=== PATIENT | male | born 1970 | race African-American/Black ===

== ENCOUNTER 2020-10-15 08:31 | Emergency (ER) | payer OTHER ==
[~2020-10-15] VITALS: Ht 180.3 cm; Wt 79.0 kg
[2020-10-15] MEDS ORDERED: FLUORESCEIN SODIUM 1MG/STRIP RIGHTEYE ONE (08:45)
[2020-10-15] MEDS ORDERED: TETRACAINE 0.5% OPHTH DROPS 4ML BOTHEYE ONE (08:45)
[2020-10-15 08:52] VITALS: BP 125/89
[2020-10-15] MEDS ORDERED: SULF15DR26 RIGHTEYE (08:59)
== END 2020-10-15 09:20 | disposition home or self-care (01) ==
LOC: ER 08:31
DX: H10.9 Unspecified conjunctivitis (principal)
CPT/HCPCS: 99283

== ENCOUNTER 2021-05-30 17:53 | Emergency (ER) | payer OTHER ==
[~2021-05-30] VITALS: Ht 180.3 cm; Wt 84.0 kg
[~2021-05-30 17:53] MED LIST: SULF15DR26 RIGHTEYE
[2021-05-30 18:43] LABS: BASOPHILS % 0.9 % (0.0-2.0); EOSINOPHILS % 1.4 % (0.0-5.0); HEMATOCRIT. 38.4 % (42.0-52.0); HEMOGLOBIN. 12.6 g/dL (14.0-18.0); LYMPHOCYTES % 27.8 % (20.0-50.0); MEAN CORPUSCULAR HEMOGLOBIN 27.4 pg (28.0-32.0); MEAN CORPUSCULAR VOLUME 83.9 fL (80.0-94.0); MEAN PLATELET VOLUME 9.4 fl (7.4-10.4); MONOCYTES % 12.3 % (2.0-8.0); NEUTROPHILS % 57.6 % (40.0-76.0); PLATELET 201 x1000/uL (130-400); RED BLOOD CELL COUNT 4.58 mill/uL (4.7-6.1); RED CELL DISTRIBUTION WIDTH 15.8 % (11.6-14.6)
[2021-05-30 18:46] LABS: CHLORIDE 108 mEq/L (98-107)
[2021-05-30 18:56] LABS: B-HCG QUANTITATIVE < 1 mIU/mL (<3)
[2021-05-30 23:13] VITALS: BP 128/85
== END 2021-05-30 23:25 | disposition home or self-care (01) ==
LOC: ER 17:53
DX: R07.89 Other chest pain (principal); R06.00 Dyspnea, unspecified
CPT/HCPCS: 36415; 71045; 80053; 83880; 84484; 84702; 85025; 86850; 86900; 93005; 99285